=== PATIENT | male | born 1955 ===

== ENCOUNTER 2023-01-24 08:46 | Day surgery (SDC) | payer MEDICARE ==
[2023-01-24] MEDS ORDERED: LACTATED RINGERS 1,000 ML IV ONE ×2 (09:19→11:30)
--- NOTE | 2023-01-24 09:57 | ANESTHESIA ---
Pre-Anesthesia VS, & Labs - Diagnosis screening - Procedure colonoscopy Vital Signs: Temp Pulse Resp BP Pulse Ox O2 Flow Rate 36.2 C L 55 L 14 152/72 H 100 01/24/23 09:12 01/24/23 09:12 01/24/23 09:12 01/24/23 09:12 01/24/23 09:12 Height: 6 ft Weight (kg): 91 kg Body Mass Index: 27.1 BMI Classification: Overweight - NPO Other (prep as directed) Home Medications and Allergies Home Medications: Ambulatory Orders No Known Home Medications 01/24/23 No Known Home Medications 01/24/23 Allergies/Adverse Reactions: Allergies Allergy/AdvReac Type Severity Reaction Status Date / Time No Known Drug Allergies Allergy Verified 01/24/23 09:13 Anes History & Medical History - Anesthetic History Anesthesia Complications: reports: No previous complications - Medical History Cardiovascular: reports: None Pulmonary: reports: None Gastrointestinal: reports: None Urinary: reports: None Musculoskeletal: reports: None Endocrine/Autoimmune: reports: None Skin: reports: None Smoking Status: Never smoker Psychosocial: reports: Alcohol (occassionally, wine a couple times a week) - Surgical History General: reports: Colonoscopy Exam General: Alert Dental: WNL Mouth Opening: Greater than 4 Fingerbreadths Neck Mobility: Normal Mallampati classification: II Thyromental Distance: greater than 6 cm Respiratory: Lungs clear Cardiovascular: Regular rate, Normal S1, Normal S2 Plan Anesthesia Type: Total IV Consent for Procedure(s) Verified and Reviewed: Yes Code Status: Attempt Resuscitation ASA classification: 1-Healthy patient Is this case an emergency?: No
[2023-01-24] MEDS ORDERED: PROPOFOL 500 MG/50 ML 500 MG/50 ML VIAL ONE (10:29)
[2023-01-24] MEDS ORDERED: GLYCOPYRROLATE 1 MG/5 ML VIAL ONE (11:10)
[2023-01-24 11:48] VITALS: BP 135/78; O2SAT 99
--- NOTE | 2023-01-25 14:47 | ANESTHESIA POST OP EVALUATION ---
Anesthesia Post Eval - Post Anesthesia Eval Vitals: Last Vital Signs Temp 363 C H 01/24/23 11:30 Pulse 56 L 01/24/23 11:47 Resp 17 01/24/23 11:47 BP 135/78 H 01/24/23 11:47 Pulse Ox 99 01/24/23 11:47 O2 Flow Rate CV Function Including HR & BP: Stable Pain Control: Satisfactory Nausea & Vomiting: Negative Mental Status: Baseline Respiratory Status: Airway Patent Hydration Status: Satisfactory Anesthesia Complications: None
== END 2023-01-24 08:47 | disposition home or self-care (01) ==
LOC: SDS 08:46
PROVIDERS: ATTEND Surgery
PROC: 0DBN8ZX Excision of Sigmoid Colon, Via Natural or Artificial Opening Endoscopic, Diagnostic (ICD-10-PCS; principal; 2023-01-24 10:15)
DX: Z12.11 Encounter for screening for malignant neoplasm of colon (principal); D12.5 Benign neoplasm of sigmoid colon; Z80.0 Family history of malignant neoplasm of digestive organs
CPT/HCPCS: 45385; J7120